=== PATIENT | male | born 1930 | race Caucasian/White ===

== ENCOUNTER 2019-08-09 23:17 | Inpatient (IN) | payer MEDICARE, OTHER ==
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
[2019-08-10 00:31] LABS: ABS Lymphocytes 0.3 10^3/ul (1.0-4.8); ABS Monocytes 0.4 10^3/ul (0-0.8); ABS Neutrophils 5.4 10^3/ul (1.5-7.7); Hematocrit 35 % (42-52); Hemoglobin 11.7 g/dL (14.0-18.0); Lymphocyte % 5.1 %; Mean Corpuscular HGB Conc 33 g/dL (31-36); Mean Corpuscular Hemoglobin 32 pg (27-31); Mean Corpuscular Volume 96 fL (80-94); Mean Platelet Volume 9.2 fL (7.4-10.4); Platelet Count 113 10^3/uL (150-450); Red Blood Count 3.64 10^6 /uL (4.18-5.48); Red Cell Distribution Width 16 % (10-15); White Blood Count 6.1 10^3/uL (3.5-10.8)
[2019-08-10 00:51] LABS: Albumin 3.7 g/dL (3.2-5.2); BUN/Creatinine Ratio 16.2 (8-20); C Reactive Protein 111.75 mg/L (<8.01); EGFR African American 26.3 (>60); EGFR Non-African American 21.8 (>60); Globulin 3.7 g/dL (2-4); Influenza A Molecular Negative (Negative); Influenza B Molecular Negative (Negative); Potassium 4.5 mmol/L (3.5-5.0); Total Protein 7.4 g/dL (6.4-8.9)
[2019-08-10] MEDS ORDERED: cefTRIAXone(*) 1 GM in NS 0.9% 50 ML* 50 ML IVPB ONE (01:03)
[2019-08-10] MEDS ORDERED: Azithromycin 500 mg/250 ml NS 500 MG/250 ML BAG IVPB ONE (01:03)
[2019-08-10] MEDS ORDERED: Acetaminophen TAB* 325 MG PO ONE (01:03)
[2019-08-10] MEDS ORDERED: NS 0.9% 1000 ML** 1,000 ML IV ONE ×2 (02:25→03:34)
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
[2019-08-10 07:07] LABS: ALT 103 U/L (7-52); AST 219 U/L (13-39); Alkaline Phosphatase 142 U/L (34-104); Anion Gap 8 mmol/L (2-11); BUN/Creatinine Ratio 17.4 (8-20); Blood Urea Nitrogen 44 mg/dL (6-24); CO2 Carbon Dioxide 20 mmol/L (22-32); Calcium 8.1 mg/dL (8.6-10.3); Chloride 102 mmol/L (101-111); EGFR African American 29.2 (>60); EGFR Non-African American 24.2 (>60); Globulin 3.1 g/dL (2-4); Glucose 116 mg/dL (70-100); Potassium 3.9 mmol/L (3.5-5.0); Sodium 130 mmol/L (135-145); Total Protein 6.1 g/dL (6.4-8.9)
[2019-08-10 08:46] LABS: ABS Lymphocytes 0.5 10^3/ul (1.0-4.8); ABS Monocytes 0.4 10^3/ul (0-0.8); ABS Neutrophils 3.8 10^3/ul (1.5-7.7); Hematocrit 29 % (42-52); Hemoglobin 9.8 g/dL (14.0-18.0); Lymphocyte % 10.9 %; Mean Corpuscular HGB Conc 34 g/dL (31-36); Mean Corpuscular Hemoglobin 32 pg (27-31); Mean Corpuscular Volume 95 fL (80-94); Platelet Count Platelets clumped. 10^3/uL (150-450); Red Blood Count 3.06 10^6 /uL (4.18-5.48); Red Cell Distribution Width 16 % (10-15); White Blood Count 4.7 10^3/uL (3.5-10.8)
--- NOTE | 2019-08-10 10:19 | ECHO ---
*[facility]* [place] [address] Fax #: [phone] Transthoracic Echocardiogram Patient: Cong Schmidt : 1930 Study Date: 08/10/2019 Age: 89 Gender: M HR: 68 bpm Height: 66 in /167.6 cm BSA: 2.08 m^2 Weight: 197.6 lb /89.8 kg BMI: 32 kg/m^2 *Gun Fertilizer: [facility] *Referring Physician: * Diya Loo *Reading Physician: * Mario Pack MD Indications: Congestive Heart Failure. History: Labs, prior tests, procedures, and surgery: Transvascular aortic valve replacement. ICD system implantation. Conclusions Summary: - Left ventricle: The cavity size is mildly reduced. Wall thickness is mildly increased. Systolic function is severely reduced. The estimated ejection fraction is 10-15%. - Right ventricle: The cavity size is mildly dilated. Systolic function is moderately reduced. - Left atrium: The atrium is severely dilated. - Mitral valve: The Mitral valve annulus appears calcified. The leaflets and chordae are mildly thickened, especially the anterior leaflet. 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 There is moderate regurgitation, with multiple jets. The valve area is 1.3 cm^2. The valve area by pressure half-time is 2.6 cm^2. - Aortic valve: Prior repair procedures include transcatheter aortic valve replacement. Appears to be functioning normally by doppler and suboptimal 2d. The mean systolic gradient is 6.0 mm Hg. The LVOT to aortic valve VTI ratio is 0.6. The valve area by the velocity-time integral method is 1.80 cm^2. The valve area by the peak velocity method is 1.80 cm^2. - Tricuspid valve: There is moderate regurgitation. - Pulmonary arteries: Systolic pressure is moderately increased. Study data: Transthoracic echocardiogram. Procedure: Transthoracic echocardiography was performed. Image quality was adequate. Complete 2D, spectral Doppler, and color flow Doppler. Location: Bedside. Patient status: Inpatient. Patient room number: 401. No prior study is available for comparison. Rhythm: Paced rhythm. Findings Left ventricle: The cavity size is mildly reduced. Wall thickness is mildly increased. Systolic function is severely reduced. The estimated ejection fraction is 10-15%. Severe diffuse hypokinesis with regional variations. Regional wall motion abnormalities: Dyskinesis of the mid inferoseptal and apical myocardium. Left ventricular diastolic function parameters are indeterminate. Right ventricle: The cavity size is mildly dilated. Pacer wire noted in the right ventricle. Systolic function is moderately reduced. Left atrium: The atrium is severely dilated. Right atrium: The atrium is moderately dilated. Pacer wire noted in right atrium. Atrial septum: Color Doppler shows an atrial level shunt. Mitral valve: The Mitral valve annulus appears calcified. The leaflets and chordae are mildly thickened, especially the anterior leaflet. Calcification. Mobility is restricted. 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 There is moderate regurgitation, with multiple jets. Aortic valve: Not well visualized. Prior repair procedures include transcatheter aortic valve replacement. Appears to be functioning normally by doppler and suboptimal 2d. There is no evidence of stenosis. There is no significant regurgitation. Tricuspid valve: The leaflets are mildly thickened. There is no evidence of stenosis. There is moderate regurgitation. Pulmonic valve: The leaflets are normal thickness. There is no evidence of stenosis. There is trace regurgitation. Aorta: Aortic root: The aortic root is not dilated. Ascending aorta: The ascending aorta is poorly visualized. Aortic arch: The aortic arch is poorly visualized. Pericardium: There is no significant pericardial effusion. Pulmonary arteries: Systolic pressure is moderately increased. Systemic veins: Inferior vena cava: The vessel is dilated. There is (< 50%) respiratory change in the IVC dimension. Measurements Left ventricle Value Ref Aortic valve continued Value Ref KATHE, LAX (L) 3.9 cm 4.2 - 5.8 VTI, S 31.0 cm ----- ESD, LAX 3.9 cm 2.5 - 4.0 Mean grad, S 6.0 mm Hg ----- FS, LAX (L) 0 % 25 - 43 Peak grad, S 12.0 mm Hg ----- PW, ED, LAX (H) 1.3 cm 0.6 - 1.0 LVOT/AV, VTI ratio 0.6 ----- E', lat parris, TDI (L) 5.7 cm/sec >=10.0 MARSHA, VTI 1.80 cm^2 - ---- E/e', lat parris, 25 MARSHA, Vmax 1.80 cm^2 ---- - TDI Mitral valve Value Ref LVOT Value Ref Peak E 1.45 m/sec ----- Diam, S 1.90 cm Peak A 0.58 m/sec ----- Area 2.8 cm^2 VTI leaflet coapt 40.9 cm ----- Peak berta, S 1.1 m/sec Decel time 207 ms ----- VTI, S 20.0 cm PHT 83 ms ----- Peak grad, S 5 mm Hg Mean grad, D 2.4 mm Hg ----- Mean grad, S 3 mm Hg Peak grad, D 9.7 mm Hg ----- Peak E/A ratio 2.5 ----- Ventricular septum Value Ref MVA, PHT 2.6 cm^2 ----- IVS, ED (H) 1.2 cm 0.6 - 1.0 MR peak v 4.21 m/sec ----- ERO, PISA 0.11 cm^2 ----- Right ventricle Value Ref MR vol, PISA 16 ml ----- KATHE, LAX 3.2 cm KATHE major ax, A4C (L) 4.5 cm 5.9 - 8.3 Pulmonic valve Value Ref Pressure, S 50 mm Hg Peak v, S 0.7 m/sec ----- Peak grad, S 2.0 mm Hg ----- Left atrium Value Ref AP dim, ES (H) 4.54 cm 3.00 - Tricuspid valve Value Ref 4.00 Peak grad, D 35.0 mm Hg ----- ML dim, A4C 5.1 cm TR peak v (H) 2.9 m/sec <=2.8 SI dim, A4C 7.0 cm Vol/bsa, ES, 2-p (H) 56 ml/m^2 16 - 34 Aortic root Value Ref Root diam 2.3 cm <4.2 Right atrium Value Ref SI dim, ES (H) 5.5 cm 3.4 - 5.3 Pulmonary artery Value Ref ML dim, ES, A4C (H) 5.2 cm 2.6 - 4.4 Pressure, S 48.0 mm Hg ----- Estimated RAP 15 mm Hg Inferior vena cava Value Ref Aortic valve Value Ref Diam 2.5 cm ----- Parris diam, ED 2.2 cm Parris diam/bsa, ED 1.1 cm/m^2 Peak v, S 1.7 m/sec Legend: (L) and (H) antonio values outside specified reference range. Prepared and electronically signed by Mario Pack MD 08/10/2019 10:18
[2019-08-10] MEDS ORDERED: Metolazone TAB* 5 MG PO PRN (11:23)
[2019-08-10 11:35] LABS: Total Iron Binding Capacity 190 mcg/dL (250-450); Transferrin 136 mg/dL (203-362)
[2019-08-10 11:41] LABS: % Iron Saturation 11 % (15-55); Iron < 20 ug/dL (50-212)
[2019-08-10 12:00] LABS: Folate 8.98 ng/mL (>3.99)
[2019-08-10] MEDS: DOXYcycline IV* 100 MG in NS 0.9% 250 ML* 250 ML IVPB SCH ×2 (13:01→23:27)
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
[2019-08-10] MEDS: Bumetanide TAB* 1 MG PO SCH ×2 (14:40→21:13)
[2019-08-10 17:56] LABS: Troponin I 0.11 ng/mL (<0.03)
[2019-08-10] MEDS ORDERED: Azithromycin 500 mg/250 ml NS 500 MG/250 ML BAG IVPB SCH (20:00)
[2019-08-10 20:06] LABS: Troponin I 0.09 ng/mL (<0.03)
[2019-08-10] MEDS: cefTRIAXone(*) 1 GM in NS 0.9% 50 ML* 50 ML IVPB SCH (20:48)
[2019-08-10] MEDS ORDERED: Apixaban* 2.5 MG TAB PO SCH (21:00)
[2019-08-10] MEDS ORDERED: BUMETANIDE 1 MG PO SCH (21:00)
[2019-08-10] MEDS: Pantoprazole TAB * 40 MG TAB PO SCH (21:13)
[2019-08-10] MEDS: amLODIPine TAB* 5 MG PO SCH (21:13)
[2019-08-10] MEDS: Iron Sucrose* 200 MG in NS 0.9% 100 ML* 100 ML IVPB SCH (22:38)
[2019-08-10] MEDS: guaiFENesin 100 mg/5 ml LIQ unit dose cup PO PRN (22:55)
[2019-08-11 05:09] LABS: Urine Appearance Cloudy; Urine Bilirubin Negative (Negative); Urine Blood 1+ (Negative); Urine Color Amber; Urine Glucose Negative (Negative); Urine Ketones Negative (Negative); Urine Nitrite Negative (Negative); Urine Protein 1+(30 mg/dL) (Negative); Urine Specific Gravity 1.015 (1.010-1.030); Urine Urobilinogen Negative (Negative)
[2019-08-11 05:11] LABS: Urine Bacteria Absent (Absent); Urine Red Blood Cell Trace(0-2/hpf) (Absent); Urine Squamous Epithelial Cell Present (Absent); Urine White Blood Cell Absent (Absent)
[2019-08-11 05:59] LABS: CO2 Carbon Dioxide 15 mmol/L (22-32); Calcium 8.1 mg/dL (8.6-10.3); Chloride 99 mmol/L (101-111); Sodium 126 mmol/L (135-145)
[2019-08-11 06:03] LABS: Anion Gap 12 mmol/L (2-11)
[2019-08-11 06:05] LABS: BUN/Creatinine Ratio 19.5 (8-20); Blood Urea Nitrogen 53 mg/dL (6-24); EGFR African American 26.9 (>60); EGFR Non-African American 22.2 (>60); Glucose 100 mg/dL (70-100)
[2019-08-11 06:13] LABS: ABS Lymphocytes 0.6 10^3/ul (1.0-4.8); ABS Monocytes 0.6 10^3/ul (0-0.8); ABS Neutrophils 6.8 10^3/ul (1.5-7.7); Hematocrit 35 % (42-52); Hemoglobin 11.6 g/dL (14.0-18.0); Large Platelets Present; Lymphocyte % 7.2 %; Mean Corpuscular HGB Conc 33 g/dL (31-36); Mean Corpuscular Hemoglobin 32 pg (27-31); Mean Corpuscular Volume 97 fL (80-94); Mean Platelet Volume 10.3 fL (7.4-10.4); Nucleated Red Blood Cells % 0.3; Platelet Count 88 10^3/uL (150-450); Red Blood Count 3.62 10^6 /uL (4.18-5.48); Red Cell Distribution Width 17 % (10-15); White Blood Count 8.1 10^3/uL (3.5-10.8)
[2019-08-11] MEDS: Levothyroxine TAB* 175 MCG TAB PO SCH (06:26)
[2019-08-11] MEDS: guaiFENesin 100 mg/5 ml LIQ unit dose cup PO PRN ×2 (06:26→19:39)
[2019-08-11] MEDS: Pantoprazole TAB * 40 MG TAB PO SCH ×2 (09:35→19:39)
[2019-08-11] MEDS: Finasteride TAB* 5 MG PO SCH (09:36)
[2019-08-11] MEDS: Tamsulosin CAP* 0.4 MG PO SCH (09:36)
[2019-08-11] MEDS: Ferrous Sulfate TAB* 325 MG PO SCH (09:37)
[2019-08-11] MEDS: Iron Sucrose* 200 MG in NS 0.9% 100 ML* 100 ML IVPB SCH (09:37)
[2019-08-11] MEDS: Atorvastatin* 10 MG TAB PO SCH (09:37)
[2019-08-11] MEDS: Amiodarone TAB* 200 MG PO SCH (09:37)
[2019-08-11] MEDS: amLODIPine TAB* 5 MG PO SCH (09:40)
[2019-08-11] MEDS: DOXYcycline IV* 100 MG in NS 0.9% 250 ML* 250 ML IVPB SCH ×2 (12:37→23:49)
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
[2019-08-11] MEDS ORDERED: Furosemide IV* 10 MG/ML 2 ML VIAL (20 MG) IV ONE (13:37)
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
[2019-08-11] MEDS ORDERED: NS 0.9% 500 ML* 500 ML IV ONE (19:16)
[2019-08-11] MEDS: cefTRIAXone(*) 1 GM in NS 0.9% 50 ML* 50 ML IVPB SCH (19:39)
[2019-08-12] MEDS: Levothyroxine TAB* 175 MCG TAB PO SCH (06:00)
[2019-08-12 06:44] LABS: ABS Lymphocytes 0.5 10^3/ul (1.0-4.8); ABS Monocytes 0.4 10^3/ul (0-0.8); ABS Neutrophils 6.5 10^3/ul (1.5-7.7); Calcium 7.8 mg/dL (8.6-10.3); Chloride 99 mmol/L (101-111); Hematocrit 31 % (42-52); Hemoglobin 10.2 g/dL (14.0-18.0); Lymphocyte % 6.8 %; Mean Corpuscular HGB Conc 33 g/dL (31-36); Mean Corpuscular Hemoglobin 32 pg (27-31); Mean Corpuscular Volume 97 fL (80-94); Mean Platelet Volume 10.7 fL (7.4-10.4); Nucleated Red Blood Cells % 0.6; Platelet Count 81 10^3/uL (150-450); Red Cell Distribution Width 17 % (10-15); Sodium 125 mmol/L (135-145); White Blood Count 7.4 10^3/uL (3.5-10.8)
[2019-08-12 06:47] LABS: Anion Gap 12 mmol/L (2-11); CO2 Carbon Dioxide 14 mmol/L (22-32)
[2019-08-12 06:50] LABS: BUN/Creatinine Ratio 20.3 (8-20); Blood Urea Nitrogen 57 mg/dL (6-24); EGFR African American 25.9 (>60); EGFR Non-African American 21.4 (>60); Glucose 88 mg/dL (70-100)
[2019-08-12] MEDS: Tamsulosin CAP* 0.4 MG PO SCH (11:27)
[2019-08-12] MEDS: Finasteride TAB* 5 MG PO SCH (11:27)
[2019-08-12] MEDS: Amiodarone TAB* 200 MG PO SCH (11:28)
[2019-08-12] MEDS: Ferrous Sulfate TAB* 325 MG PO SCH (11:28)
[2019-08-12] MEDS: Pantoprazole TAB * 40 MG TAB PO SCH ×2 (11:28→20:56)
[2019-08-12] MEDS: Atorvastatin* 10 MG TAB PO SCH (11:28)
[2019-08-12] MEDS: Iron Sucrose* 200 MG in NS 0.9% 100 ML* 100 ML IVPB SCH (11:30)
[2019-08-12] MEDS: DOXYcycline IV* 100 MG in NS 0.9% 250 ML* 250 ML IVPB SCH (12:04)
[2019-08-12] MEDS ORDERED: Furosemide IV* 10 MG/ML 2 ML VIAL (20 MG) IV ONE (12:35)
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
[2019-08-12] MEDS: Bumetanide TAB* 2 MG PO SCH (20:55)
[2019-08-12] MEDS: cefTRIAXone(*) 1 GM in NS 0.9% 50 ML* 50 ML IVPB SCH (20:56)
[2019-08-13] MEDS: DOXYcycline IV* 100 MG in NS 0.9% 250 ML* 250 ML IVPB SCH (00:02)
[2019-08-13] MEDS: Levothyroxine TAB* 175 MCG TAB PO SCH (05:29)
[2019-08-13 08:43] LABS: ABS Lymphocytes 0.3 10^3/ul (1.0-4.8); ABS Monocytes 0.3 10^3/ul (0-0.8); Eosinophil % 0.1 %; Hematocrit 28 % (42-52); Hemoglobin 9.7 g/dL (14.0-18.0); Lymphocyte % 4.4 %; Mean Corpuscular HGB Conc 34 g/dL (31-36); Mean Corpuscular Hemoglobin 32 pg (27-31); Mean Corpuscular Volume 94 fL (80-94); Nucleated Red Blood Cells % 0.6; Platelet Count 85 10^3/uL (150-450); Red Blood Count 3.02 10^6 /uL (4.18-5.48); Red Cell Distribution Width 16 % (10-15); White Blood Count 6.7 10^3/uL (3.5-10.8)
[2019-08-13 08:59] LABS: Albumin 2.6 g/dL (3.2-5.2); Albumin/Globulin Ratio 0.9 (1-3); BUN/Creatinine Ratio 21.4 (8-20); Calcium 7.8 mg/dL (8.6-10.3); EGFR African American 29.4 (>60); EGFR Non-African American 24.3 (>60); Globulin 2.9 g/dL (2-4); Magnesium 1.8 mg/dL (1.9-2.7); Potassium 3.9 mmol/L (3.5-5.0); Total Protein 5.5 g/dL (6.4-8.9)
[2019-08-13] MEDS: Bumetanide TAB* 2 MG PO SCH (09:31)
[2019-08-13] MEDS: Amiodarone TAB* 200 MG PO SCH (09:32)
[2019-08-13] MEDS: Finasteride TAB* 5 MG PO SCH (09:32)
[2019-08-13] MEDS: Atorvastatin* 10 MG TAB PO SCH (09:33)
[2019-08-13] MEDS: Tamsulosin CAP* 0.4 MG PO SCH (09:33)
[2019-08-13] MEDS: Iron Sucrose* 200 MG in NS 0.9% 100 ML* 100 ML IVPB SCH (09:33)
[2019-08-13] MEDS: Pantoprazole TAB * 40 MG TAB PO SCH (09:34)
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
[2019-08-13] MEDS ORDERED: Torsemide TAB 10 MG PO SCH (12:00)
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
--- NOTE | 2019-08-13 15:03 | CONSULT ---
Consult Consult: Consult Reason: For Medical Decision Making Capacity Psychiatry is asked to evaluate this 89 year old male with pneumonia, CHF, CKD , BPH, Anemia, who is COVID-19 + for medical decision making capacity. His daughter who is his health care proxy wishes that he be DNR/DNI. No MOLST form has not been completed and the patient wishes to have full code status and be intubated. The patient was hard of hearing during the encounter. Given the information provided the patient has the right to choose full code status and life staining treatment. No MOLST form is available and the patient knows his health condition and is able to make a choice for himself and understand the risks of that decision. MSE is not available Due to COVID status, the patient encounter took place by phone. Information was communicated to the consulting provider who is in agreement with the plan. Please consult again if you have any further questions Thank you for the consult. Amado Matthews MD
[2019-08-14] MEDS: Levothyroxine TAB* 175 MCG TAB PO SCH (05:31)
[2019-08-14 07:26] LABS: ABS Lymphocytes 0.3 10^3/ul (1.0-4.8); ABS Monocytes 0.3 10^3/ul (0-0.8); ABS Neutrophils 4.6 10^3/ul (1.5-7.7); Eosinophil % 0.6 %; Hematocrit 29 % (42-52); Hemoglobin 9.8 g/dL (14.0-18.0); Lymphocyte % 5.8 %; Mean Corpuscular HGB Conc 34 g/dL (31-36); Mean Corpuscular Hemoglobin 32 pg (27-31); Mean Corpuscular Volume 95 fL (80-94); Mean Platelet Volume 9.5 fL (7.4-10.4); Nucleated Red Blood Cells % 0.4; Platelet Count 95 10^3/uL (150-450); Red Blood Count 3.09 10^6 /uL (4.18-5.48); Red Cell Distribution Width 17 % (10-15); White Blood Count 5.3 10^3/uL (3.5-10.8)
[2019-08-14 07:30] LABS: BUN/Creatinine Ratio 22.2 (8-20); Calcium 7.9 mg/dL (8.6-10.3); EGFR African American 34.2 (>60); EGFR Non-African American 28.2 (>60); Magnesium 1.8 mg/dL (1.9-2.7); Potassium 3.6 mmol/L (3.5-5.0)
[2019-08-14] MEDS: Iron Sucrose* 200 MG in NS 0.9% 100 ML* 100 ML IVPB SCH (08:12)
[2019-08-14] MEDS: Tamsulosin CAP* 0.4 MG PO SCH (08:12)
[2019-08-14] MEDS: Atorvastatin* 10 MG TAB PO SCH (08:12)
[2019-08-14] MEDS: Amiodarone TAB* 200 MG PO SCH (08:12)
[2019-08-14] MEDS: Finasteride TAB* 5 MG PO SCH (08:13)
[2019-08-14] MEDS: Pantoprazole TAB * 40 MG TAB PO SCH (08:13)
[2019-08-14] MEDS ORDERED: Torsemide TAB 10 MG PO SCH (09:00)
[2019-08-14] MEDS: guaiFENesin 100 mg/5 ml LIQ unit dose cup PO PRN (13:00)
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
[2019-08-14] MEDS: Polyethylene Glycol 3350* 17 GM PACKET PO PRN (17:47)
[2019-08-14] MEDS: Apixaban* 2.5 MG TAB PO SCH (20:05)
[2019-08-14] MEDS ORDERED: Magnesium Sulfate 1 GM IV* 1 GM/100 ML BAG IV ONE (21:00)
[2019-08-15] MEDS: Levothyroxine TAB* 175 MCG TAB PO SCH (05:09)
[2019-08-15 06:57] LABS: Hematocrit 30 % (42-52); Mean Corpuscular HGB Conc 34 g/dL (31-36); Mean Corpuscular Hemoglobin 32 pg (27-31); Mean Corpuscular Volume 94 fL (80-94); Mean Platelet Volume 9.2 fL (7.4-10.4); Platelet Count 98 10^3/uL (150-450); Red Blood Count 3.13 10^6 /uL (4.18-5.48); Red Cell Distribution Width 16 % (10-15); White Blood Count 4.6 10^3/uL (3.5-10.8)
[2019-08-15 07:09] LABS: ALT 306 U/L (7-52); AST 167 U/L (13-39); Albumin 2.7 g/dL (3.2-5.2); Albumin/Globulin Ratio 0.9 (1-3); Alkaline Phosphatase 200 U/L (34-104); Anion Gap 8 mmol/L (2-11); BUN/Creatinine Ratio 22.6 (8-20); Blood Urea Nitrogen 47 mg/dL (6-24); C Reactive Protein 100.22 mg/L (<8.01); CO2 Carbon Dioxide 20 mmol/L (22-32); Calcium 7.9 mg/dL (8.6-10.3); Chloride 101 mmol/L (101-111); EGFR African American 36.6 (>60); EGFR Non-African American 30.3 (>60); Globulin 2.9 g/dL (2-4); Glucose 104 mg/dL (70-100); Potassium 3.6 mmol/L (3.5-5.0); Sodium 129 mmol/L (135-145); Total Protein 5.6 g/dL (6.4-8.9)
[2019-08-15 07:52] LABS: Ferritin > 1500.0 ng/mL (24-336)
[2019-08-15] MEDS ORDERED: NS 0.9% 100 ML* 0 ML ONE (08:31)
[2019-08-15 08:55] LABS: ABS Lymphocytes 0.4 10^3/ul (1.0-4.8); ABS Monocytes 0.4 10^3/ul (0-0.8); ABS Neutrophils 3.7 10^3/ul (1.5-7.7); Lymphocyte % 9.2 %; Nucleated Red Blood Cells % 0.5
[2019-08-15] MEDS: Finasteride TAB* 5 MG PO SCH (08:59)
[2019-08-15] MEDS: Atorvastatin* 10 MG TAB PO SCH (08:59)
[2019-08-15] MEDS: Apixaban* 2.5 MG TAB PO SCH ×2 (08:59→20:42)
[2019-08-15] MEDS: Amiodarone TAB* 200 MG PO SCH (09:00)
[2019-08-15] MEDS: Tamsulosin CAP* 0.4 MG PO SCH (09:00)
[2019-08-15] MEDS: Pantoprazole TAB * 40 MG TAB PO SCH (09:00)
[2019-08-15] MEDS: Iron Sucrose* 200 MG in NS 0.9% 100 ML* 100 ML IVPB SCH (09:00)
[2019-08-15] MEDS: Polyethylene Glycol 3350* 17 GM PACKET PO PRN (09:45)
[2019-08-15] MEDS: Senna TAB 8.6 mg* TAB PO PRN (09:46)
[2019-08-15] MEDS ORDERED: Acetaminophen TAB* 325 MG PO PRN (10:26)
[2019-08-15 11:05] LABS: LDH 248 U/L (140-271)
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
[2019-08-16 04:49] LABS: Albumin 2.6 g/dL (3.2-5.2); Albumin/Globulin Ratio 0.9 (1-3); BUN/Creatinine Ratio 23.2 (8-20); C Reactive Protein 71.59 mg/L (<8.01); EGFR Non-African American 35.6 (>60); Magnesium 1.9 mg/dL (1.9-2.7); Potassium 3.6 mmol/L (3.5-5.0); Total Bilirubin 1.2 mg/dL (0.2-1.0); Total Protein 5.6 g/dL (6.4-8.9)
[2019-08-16 05:08] LABS: Hematocrit 32 % (42-52); Hemoglobin 10.6 g/dL (14.0-18.0); Mean Corpuscular HGB Conc 33 g/dL (31-36); Mean Corpuscular Hemoglobin 32 pg (27-31); Mean Corpuscular Volume 97 fL (80-94); Mean Platelet Volume 9.2 fL (7.4-10.4); Platelet Count 98 10^3/uL (150-450); Red Blood Count 3.32 10^6 /uL (4.18-5.48); Red Cell Distribution Width 17 % (10-15); White Blood Count 5.1 10^3/uL (3.5-10.8)
[2019-08-16 05:19] LABS: ABS Eosinophils 0.1 10^3/ul (0-0.6); ABS Lymphocytes 0.5 10^3/ul (1.0-4.8); ABS Monocytes 0.3 10^3/ul (0-0.8); ABS Neutrophils 4.1 10^3/ul (1.5-7.7); Eosinophil % 1.3 %; Lymphocyte % 10.8 %; Nucleated Red Blood Cells % 0.2
[2019-08-16] MEDS: Levothyroxine TAB* 175 MCG TAB PO SCH (06:06)
[2019-08-16] MEDS: Amiodarone TAB* 200 MG PO SCH (07:38)
[2019-08-16] MEDS: Atorvastatin* 10 MG TAB PO SCH (07:38)
[2019-08-16] MEDS: Senna TAB 8.6 mg* TAB PO PRN (07:38)
[2019-08-16] MEDS: Pantoprazole TAB * 40 MG TAB PO SCH (07:38)
[2019-08-16] MEDS: Finasteride TAB* 5 MG PO SCH (07:38)
[2019-08-16] MEDS: Apixaban* 2.5 MG TAB PO SCH ×2 (07:38→19:48)
[2019-08-16] MEDS: Tamsulosin CAP* 0.4 MG PO SCH (07:38)
[2019-08-16] MEDS: Bumetanide TAB* 2 MG PO PRN (10:58)
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
[2019-08-17] MEDS: Levothyroxine TAB* 175 MCG TAB PO SCH (05:11)
[2019-08-17] MEDS: Senna TAB 8.6 mg* TAB PO PRN (08:37)
[2019-08-17] MEDS: Finasteride TAB* 5 MG PO SCH (08:38)
[2019-08-17] MEDS: Tamsulosin CAP* 0.4 MG PO SCH (08:38)
[2019-08-17] MEDS: Atorvastatin* 10 MG TAB PO SCH (08:38)
[2019-08-17] MEDS: Apixaban* 2.5 MG TAB PO SCH ×2 (08:38→20:21)
[2019-08-17] MEDS: Amiodarone TAB* 200 MG PO SCH (08:38)
[2019-08-17] MEDS: Polyethylene Glycol 3350* 17 GM PACKET PO PRN (08:38)
[2019-08-17] MEDS: Pantoprazole TAB * 40 MG TAB PO SCH (08:38)
[2019-08-17 10:04] LABS: ABS Lymphocytes 0.4 10^3/ul (1.0-4.8); ABS Monocytes 0.5 10^3/ul (0-0.8); ABS Neutrophils 7.2 10^3/ul (1.5-7.7); Eosinophil % 0.4 %; Hematocrit 33 % (42-52); Lymphocyte % 4.8 %; Mean Corpuscular HGB Conc 34 g/dL (31-36); Mean Corpuscular Hemoglobin 32 pg (27-31); Mean Corpuscular Volume 95 fL (80-94); Platelet Count 116 10^3/uL (150-450); Red Blood Count 3.45 10^6 /uL (4.18-5.48); Red Cell Distribution Width 17 % (10-15); White Blood Count 8.2 10^3/uL (3.5-10.8)
[2019-08-17 12:44] LABS: Albumin 2.8 g/dL (3.2-5.2); CO2 Carbon Dioxide 16 mmol/L (22-32); Calcium 7.9 mg/dL (8.6-10.3); Chloride 102 mmol/L (101-111); Sodium 129 mmol/L (135-145)
[2019-08-17 12:48] LABS: Anion Gap 11 mmol/L (2-11)
[2019-08-17 12:50] LABS: ALT 179 U/L (7-52); Albumin/Globulin Ratio 0.9 (1-3); Alkaline Phosphatase 210 U/L (34-104); Blood Urea Nitrogen 42 mg/dL (6-24); C Reactive Protein 64.49 mg/L (<8.01); EGFR African American 44.7 (>60); Glucose 110 mg/dL (70-100); Total Protein 5.8 g/dL (6.4-8.9)
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
[2019-08-18] MEDS: Levothyroxine TAB* 175 MCG TAB PO SCH (05:44)
[2019-08-18 06:08] LABS: Hematocrit 32 % (42-52); Hemoglobin 10.7 g/dL (14.0-18.0); Mean Corpuscular HGB Conc 34 g/dL (31-36); Mean Corpuscular Hemoglobin 32 pg (27-31); Mean Corpuscular Volume 95 fL (80-94); Platelet Count 109 10^3/uL (150-450); Red Blood Count 3.32 10^6 /uL (4.18-5.48); Red Cell Distribution Width 17 % (10-15); White Blood Count 8.8 10^3/uL (3.5-10.8)
[2019-08-18 06:15] LABS: INR 1.76 (0.82-1.09)
[2019-08-18 06:28] LABS: Albumin 2.8 g/dL (3.2-5.2); Albumin/Globulin Ratio 0.9 (1-3); BUN/Creatinine Ratio 24.7 (8-20); C Reactive Protein 67.36 mg/L (<8.01); Calcium 8.1 mg/dL (8.6-10.3); EGFR African American 50.3 (>60); EGFR Non-African American 41.6 (>60); Phosphorus 1.8 mg/dL (2.5-5.0); Potassium 3.9 mmol/L (3.5-5.0); Total Bilirubin 1.4 mg/dL (0.2-1.0); Total Protein 5.8 g/dL (6.4-8.9)
[2019-08-18 06:42] LABS: ABS Eosinophils 0.1 10^3/ul (0-0.6); ABS Lymphocytes 0.5 10^3/ul (1.0-4.8); ABS Monocytes 0.4 10^3/ul (0-0.8); ABS Neutrophils 7.7 10^3/ul (1.5-7.7); Eosinophil % 0.7 %; Lymphocyte % 6.1 %; Nucleated Red Blood Cells % 0.1
[2019-08-18] MEDS: Tamsulosin CAP* 0.4 MG PO SCH (08:28)
[2019-08-18] MEDS: Pantoprazole TAB * 40 MG TAB PO SCH (08:28)
[2019-08-18] MEDS: Apixaban* 2.5 MG TAB PO SCH ×2 (08:28→20:15)
[2019-08-18] MEDS: Amiodarone TAB* 200 MG PO SCH (08:28)
[2019-08-18] MEDS: Bumetanide TAB* 2 MG PO PRN (08:28)
[2019-08-18] MEDS: Atorvastatin* 10 MG TAB PO SCH (08:28)
[2019-08-18] MEDS: Finasteride TAB* 5 MG PO SCH (08:29)
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
[2019-08-18] MEDS ORDERED: Magnesium Sulfate 1 GM IV* 1 GM/100 ML BAG IV ONE (15:56)
[2019-08-19] MEDS: Levothyroxine TAB* 175 MCG TAB PO SCH (06:01)
[2019-08-19] MEDS: Amiodarone TAB* 200 MG PO SCH (08:42)
[2019-08-19] MEDS: Atorvastatin* 10 MG TAB PO SCH (08:42)
[2019-08-19] MEDS: Apixaban* 2.5 MG TAB PO SCH ×2 (08:42→21:41)
[2019-08-19] MEDS: Tamsulosin CAP* 0.4 MG PO SCH (08:42)
[2019-08-19] MEDS: Finasteride TAB* 5 MG PO SCH (08:43)
[2019-08-19] MEDS: Pantoprazole TAB * 40 MG TAB PO SCH (08:43)
[2019-08-19] MEDS: Polyethylene Glycol 3350* 17 GM PACKET PO PRN (11:38)
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
[2019-08-19 14:13] LABS: Hematocrit 36 % (42-52); Hemoglobin 11.7 g/dL (14.0-18.0); Mean Corpuscular HGB Conc 33 g/dL (31-36); Mean Corpuscular Hemoglobin 31 pg (27-31); Mean Corpuscular Volume 96 fL (80-94); Mean Platelet Volume 8.9 fL (7.4-10.4); Platelet Count 128 10^3/uL (150-450); Red Blood Count 3.74 10^6 /uL (4.18-5.48); Red Cell Distribution Width 17 % (10-15)
[2019-08-19 14:23] LABS: Albumin 3.3 g/dL (3.2-5.2); Albumin/Globulin Ratio 0.9 (1-3); BUN/Creatinine Ratio 22.3 (8-20); Calcium 8.6 mg/dL (8.6-10.3); EGFR African American 50.7 (>60); EGFR Non-African American 41.9 (>60); Globulin 3.6 g/dL (2-4); Potassium 3.9 mmol/L (3.5-5.0); Total Bilirubin 1.5 mg/dL (0.2-1.0); Total Protein 6.9 g/dL (6.4-8.9)
--- NOTE | 2019-08-19 17:46 | PN ---
Hospitalist Progress Note Date of Service: 08/19/19 increasing LE edema; BP 100/60, will give bumex 1 mg now, follow BP
[2019-08-19] MEDS: Bumetanide TAB* 2 MG PO PRN (18:10)
[2019-08-19] MEDS: Senna TAB 8.6 mg* TAB PO PRN (21:41)
[2019-08-20] MEDS: Levothyroxine TAB* 175 MCG TAB PO SCH (04:18)
[2019-08-20] MEDS: Pantoprazole TAB * 40 MG TAB PO SCH (08:23)
[2019-08-20] MEDS: Bumetanide TAB* 2 MG PO PRN (08:23)
[2019-08-20] MEDS: Tamsulosin CAP* 0.4 MG PO SCH (08:24)
[2019-08-20] MEDS: Atorvastatin* 10 MG TAB PO SCH (08:24)
[2019-08-20] MEDS: Finasteride TAB* 5 MG PO SCH (08:24)
[2019-08-20] MEDS: Amiodarone TAB* 200 MG PO SCH (08:24)
[2019-08-20] MEDS: Apixaban* 2.5 MG TAB PO SCH (08:24)
[2019-08-20 15:12] VITALS: BP 104/60
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
== END 2019-08-20 17:25 | disposition swing bed (61) | DRG 178 ==
LOC: ED 23:17 → MED 08-10 03:31
PROVIDERS: ADMIT Student in an Organized Health Care Education/Training Program; ATTEND Internal Medicine
DX: U07.1 COVID-19 (principal); I13.0 Hypertensive heart and chronic kidney disease with heart failure and stage 1 through stage 4 chronic kidney disease, or unspecified chronic kidney disease; E87.1 Hypo-osmolality and hyponatremia; I42.9 Cardiomyopathy, unspecified; I50.20 Unspecified systolic (congestive) heart failure; N18.9 Chronic kidney disease, unspecified; I25.10 Atherosclerotic heart disease of native coronary artery without angina pectoris; D50.9 Iron deficiency anemia, unspecified; Z66 Do not resuscitate; I48.91 Unspecified atrial fibrillation; R74.0 Nonspecific elevation of levels of transaminase and lactic acid dehydrogenase [LDH]; D69.6 Thrombocytopenia, unspecified; R09.02 Hypoxemia; N40.0 Benign prostatic hyperplasia without lower urinary tract symptoms; I34.0 Nonrheumatic mitral (valve) insufficiency; Z95.2 Presence of prosthetic heart valve; Z82.49 Family history of ischemic heart disease and other diseases of the circulatory system; Z87.891 Personal history of nicotine dependence; V49.3XXA Car occupant (driver) (passenger) injured in unspecified nontraffic accident, initial encounter; Y92.410 Unspecified street and highway as the place of occurrence of the external cause
CPT/HCPCS: 36415; 70450; 71045; 80048; 80053; 81003; 81015; 82272; 82607; 82728; 82746; 83540; 83550; 83605; 83615; 83735; 83880; 84100; 84484; 85025; 85027; 85060; 85610; 86140; 87040; 87635; 93005; 93306; 96365; 96375; 99285; A9270-GY; G2023; J0456; J0696; J1756; J1940; J3475; Q9967

== ENCOUNTER 2019-08-20 16:54 | Inpatient (IN) | payer MEDICARE, OTHER ==
[2019-08-20] MEDS: Senna TAB 8.6 mg TAB PO PRN (20:12)
[2019-08-21] MEDS: Polyethylene Glycol 3350 17 GM PACKET PO PRN (08:40)
[2019-08-22] MEDS: Senna TAB 8.6 mg TAB PO PRN (04:18)
[2019-08-23] MEDS: Senna TAB 8.6 mg TAB PO PRN (09:50)
[2019-08-23 14:59] LABS: Urine Appearance Turbid; Urine Bilirubin Negative (Negative); Urine Blood 3+ (Negative); Urine Color Amber; Urine Glucose Negative (Negative); Urine Ketones Negative (Negative); Urine Nitrite Negative (Negative); Urine Protein 1+(30 mg/dL) (Negative); Urine Urobilinogen Negative (Negative)
[2019-08-23 15:08] LABS: Urine Bacteria 3+ (Absent); Urine Red Blood Cell 3+(>10/hpf) (Absent); Urine White Blood Cell 3+(>20/hpf) (Absent)
[2019-08-24] MEDS: Magic MouthWash1-BEN/MAAL/LIDO 180 ML BTL SWISH SWAL SCH ×5 (01:25→20:51)
[2019-08-25] MEDS: Magic MouthWash1-BEN/MAAL/LIDO 180 ML BTL SWISH SWAL SCH ×4 (09:25→22:07)
[2019-08-26] MEDS: Magic MouthWash1-BEN/MAAL/LIDO 180 ML BTL SWISH SWAL SCH ×4 (08:47→21:28)
[2019-08-26] MEDS: cefTRIAXone ADVAN VIAL 1 GM in NS 0.9% 50 ML 50 ML IVPB SCH (16:02)
[2019-08-27 06:18] LABS: ABS Lymphocytes 0.8 10^3/ul (1.0-4.8); ABS Monocytes 0.5 10^3/ul (0-0.8); Eosinophil % 0.1 %; Hematocrit 30 % (42-52); Hemoglobin 10.2 g/dL (14.0-18.0); Lymphocyte % 8.3 %; Mean Corpuscular HGB Conc 34 g/dL (31-36); Mean Corpuscular Hemoglobin 32 pg (27-31); Mean Corpuscular Volume 96 fL (80-94); Mean Platelet Volume 8.6 fL (7.4-10.4); Platelet Count 105 10^3/uL (150-450); Red Blood Count 3.15 10^6 /uL (4.18-5.48); Red Cell Distribution Width 17 % (10-15); White Blood Count 9.5 10^3/uL (3.5-10.8)
[2019-08-27 06:29] LABS: BUN/Creatinine Ratio 23.3 (8-20); Calcium 8.6 mg/dL (8.6-10.3); EGFR African American 48.6 (>60); EGFR Non-African American 40.1 (>60); Potassium 4.5 mmol/L (3.5-5.0)
[2019-08-27] MEDS: Magic MouthWash1-BEN/MAAL/LIDO 180 ML BTL SWISH SWAL SCH ×4 (10:34→22:19)
[2019-08-27] MEDS: cefTRIAXone ADVAN VIAL 1 GM in NS 0.9% 50 ML 50 ML IVPB SCH (15:21)
[2019-08-27] MEDS: NITROFURANTOIN 100 MG PO SCH (22:12)
[2019-08-28] MEDS: NITROFURANTOIN 100 MG PO SCH (08:43)
[2019-08-28] MEDS: Magic MouthWash1-BEN/MAAL/LIDO 180 ML BTL SWISH SWAL SCH ×5 (08:45→21:17)
[2019-08-28] MEDS ORDERED: Piperacillin/Tazobac ADVAN(*) 3.375 GM in NS 0.9% 100 ml BAG 100 ML IVPB ONE (10:45)
[2019-08-28] MEDS ORDERED: Zosyn per Pharmacy NOTE FOLLOW UP SCH (11:00)
[2019-08-28] MEDS: Meropenem 2 GM in NS 0.9% 100 ml BAG 100 ML IVPB SCH (12:12)
[2019-08-28] MEDS: ZOSYN 3.375 GM Q8H per EXTENDED INFUSION IVPB SCH (17:34)
[2019-08-29] MEDS: Meropenem 2 GM in NS 0.9% 100 ml BAG 100 ML IVPB SCH ×2 (00:26→14:17)
[2019-08-29] MEDS: ZOSYN 3.375 GM Q8H per EXTENDED INFUSION IVPB SCH ×2 (01:00→11:50)
[2019-08-29] MEDS: Magic MouthWash1-BEN/MAAL/LIDO 180 ML BTL SWISH SWAL SCH ×4 (11:51→23:28)
[2019-08-29] MEDS: AVIBACTAM IV SCH ×2 (15:24→23:28)
[2019-08-29] MEDS: CEFTAZIDIME IV SCH ×2 (15:24→23:28)
[2019-08-30 06:21] LABS: ABS Basophils 0.1 10^3/ul (0-0.2); ABS Eosinophils 0.1 10^3/ul (0-0.6); ABS Lymphocytes 0.7 10^3/ul (1.0-4.8); ABS Monocytes 0.4 10^3/ul (0-0.8); Eosinophil % 0.8 %; Hematocrit 32 % (42-52); Hemoglobin 10.4 g/dL (14.0-18.0); Mean Corpuscular HGB Conc 33 g/dL (31-36); Mean Corpuscular Hemoglobin 32 pg (27-31); Mean Corpuscular Volume 97 fL (80-94); Mean Platelet Volume 8.5 fL (7.4-10.4); Platelet Count 121 10^3/uL (150-450); Red Cell Distribution Width 18 % (10-15); White Blood Count 7.4 10^3/uL (3.5-10.8)
[2019-08-30 06:42] LABS: BUN/Creatinine Ratio 16.8 (8-20); Calcium 8.3 mg/dL (8.6-10.3); EGFR Non-African American 34.7 (>60); Potassium 3.7 mmol/L (3.5-5.0)
[2019-08-30] MEDS: Magic MouthWash1-BEN/MAAL/LIDO 180 ML BTL SWISH SWAL SCH ×4 (07:35→21:12)
[2019-08-30] MEDS: CEFTAZIDIME IV SCH ×3 (07:35→22:53)
[2019-08-30] MEDS: AVIBACTAM IV SCH ×3 (07:35→22:53)
[2019-08-31] MEDS: CEFTAZIDIME IV SCH ×3 (07:34→23:54)
[2019-08-31] MEDS: AVIBACTAM IV SCH ×3 (07:34→23:54)
[2019-08-31] MEDS: Magic MouthWash1-BEN/MAAL/LIDO 180 ML BTL SWISH SWAL SCH ×4 (07:35→21:05)
[2019-08-31] MEDS: Senna TAB 8.6 mg TAB PO PRN (21:03)
[2019-09-01] MEDS: AVIBACTAM IV SCH ×3 (07:22→22:59)
[2019-09-01] MEDS: Magic MouthWash1-BEN/MAAL/LIDO 180 ML BTL SWISH SWAL SCH ×4 (07:22→20:39)
[2019-09-01] MEDS: CEFTAZIDIME IV SCH ×3 (07:22→22:59)
[2019-09-01] MEDS: Polyethylene Glycol 3350 17 GM PACKET PO PRN (11:03)
[2019-09-02] MEDS: AVIBACTAM IV SCH ×2 (07:43→15:59)
[2019-09-02] MEDS: CEFTAZIDIME IV SCH ×2 (07:43→15:59)
[2019-09-02] MEDS: Magic MouthWash1-BEN/MAAL/LIDO 180 ML BTL SWISH SWAL SCH ×4 (08:55→21:00)
[2019-09-03] MEDS: AVIBACTAM IV SCH ×3 (00:44→20:50)
[2019-09-03] MEDS: CEFTAZIDIME IV SCH ×3 (00:44→20:50)
[2019-09-03 06:45] LABS: ABS Lymphocytes 0.8 10^3/ul (1.0-4.8); ABS Monocytes 0.6 10^3/ul (0-0.8); Eosinophil % 0.3 %; Hematocrit 31 % (42-52); Hemoglobin 10.4 g/dL (14.0-18.0); Lymphocyte % 8.7 %; Mean Corpuscular HGB Conc 34 g/dL (31-36); Mean Corpuscular Hemoglobin 32 pg (27-31); Mean Corpuscular Volume 96 fL (80-94); Mean Platelet Volume 8.2 fL (7.4-10.4); Platelet Count 140 10^3/uL (150-450); Red Blood Count 3.21 10^6 /uL (4.18-5.48); Red Cell Distribution Width 18 % (10-15); White Blood Count 9.4 10^3/uL (3.5-10.8)
[2019-09-03 07:05] LABS: BUN/Creatinine Ratio 15.3 (8-20); Calcium 8.5 mg/dL (8.6-10.3); EGFR African American 40.9 (>60); EGFR Non-African American 33.8 (>60); Potassium 3.2 mmol/L (3.5-5.0)
[2019-09-03] MEDS: Magic MouthWash1-BEN/MAAL/LIDO 180 ML BTL SWISH SWAL SCH ×4 (08:30→20:54)
[2019-09-03] MEDS ORDERED: Potassium Chlor 20 meq TAB.ER PO ONE (09:12)
[2019-09-03 09:31] LABS: Magnesium 2.3 mg/dL (1.9-2.7)
[2019-09-03] MEDS ORDERED: Phenol 1.4% Throat Spray 177 ml BTL MT PRN (11:06)
[2019-09-04 08:30] LABS: BUN/Creatinine Ratio 15.7 (8-20); Calcium 8.6 mg/dL (8.6-10.3); EGFR African American 37.5 (>60); Potassium 3.8 mmol/L (3.5-5.0)
[2019-09-04] MEDS: AVIBACTAM IV SCH ×2 (09:12→19:34)
[2019-09-04] MEDS: Magic MouthWash1-BEN/MAAL/LIDO 180 ML BTL SWISH SWAL SCH ×4 (09:12→21:53)
[2019-09-04] MEDS: CEFTAZIDIME IV SCH ×2 (09:12→19:34)
[2019-09-04 11:03] LABS: T4, Total 8.24 mcg/dL (6.09-12.23)
[2019-09-04 11:05] LABS: Free T3 2.1 pg/mL (2.5-3.9); TSH (Thyroid Stimulating Horm) 4.02 mcIU/mL (0.34-5.60)
[2019-09-04 11:06] LABS: Free T4 1.7 ng/dL (0.61-1.12)
[2019-09-05] MEDS: AVIBACTAM IV SCH (09:07)
[2019-09-05] MEDS: CEFTAZIDIME IV SCH (09:07)
[2019-09-05] MEDS: Magic MouthWash1-BEN/MAAL/LIDO 180 ML BTL SWISH SWAL SCH ×4 (09:11→20:21)
[2019-09-06] MEDS: Magic MouthWash1-BEN/MAAL/LIDO 180 ML BTL SWISH SWAL SCH ×4 (10:09→19:52)
[2019-09-07] MEDS: Magic MouthWash1-BEN/MAAL/LIDO 180 ML BTL SWISH SWAL SCH ×4 (09:30→21:51)
[2019-09-08] MEDS: Magic MouthWash1-BEN/MAAL/LIDO 180 ML BTL SWISH SWAL SCH ×4 (10:56→20:06)
[2019-09-09] MEDS: Magic MouthWash1-BEN/MAAL/LIDO 180 ML BTL SWISH SWAL SCH ×4 (08:45→20:58)
[2019-09-10] MEDS: Magic MouthWash1-BEN/MAAL/LIDO 180 ML BTL SWISH SWAL SCH ×4 (09:09→20:39)
[2019-09-11] MEDS: Magic MouthWash1-BEN/MAAL/LIDO 180 ML BTL SWISH SWAL SCH ×5 (07:58→22:06)
[2019-09-11 22:27] LABS: Urine Appearance Turbid; Urine Bilirubin Negative (Negative); Urine Blood 1+ (Negative); Urine Color Yellow; Urine Glucose Negative (Negative); Urine Ketones Negative (Negative); Urine Nitrite Negative (Negative); Urine Protein Negative (Negative); Urine Specific Gravity 1.009 (1.010-1.030); Urine Urobilinogen Negative (Negative)
[2019-09-11 22:31] LABS: Urine Bacteria 1+ (Absent); Urine Red Blood Cell 3+(>10/hpf) (Absent); Urine Squamous Epithelial Cell Present (Absent); Urine White Blood Cell 3+(>20/hpf) (Absent)
[2019-09-12] MEDS: Magic MouthWash1-BEN/MAAL/LIDO 180 ML BTL SWISH SWAL SCH ×4 (09:46→21:00)
[2019-09-13] MEDS: Senna TAB 8.6 mg TAB PO PRN (08:35)
[2019-09-13] MEDS: Magic MouthWash1-BEN/MAAL/LIDO 180 ML BTL SWISH SWAL SCH ×4 (08:38→21:09)
[2019-09-14] MEDS: Magic MouthWash1-BEN/MAAL/LIDO 180 ML BTL SWISH SWAL SCH ×4 (10:26→21:38)
[2019-09-14] MEDS: Polyethylene Glycol 3350 17 GM PACKET PO PRN (21:54)
[2019-09-15] MEDS: Magic MouthWash1-BEN/MAAL/LIDO 180 ML BTL SWISH SWAL SCH ×3 (10:09→16:01)
[2019-09-15 11:01] LABS: ABS Basophils 0.1 10^3/ul (0-0.2); ABS Eosinophils 0.1 10^3/ul (0-0.6); ABS Lymphocytes 0.9 10^3/ul (1.0-4.8); ABS Monocytes 0.5 10^3/ul (0-0.8); Eosinophil % 0.8 %; Hematocrit 32 % (42-52); Hemoglobin 10.5 g/dL (14.0-18.0); Mean Corpuscular HGB Conc 33 g/dL (31-36); Mean Corpuscular Hemoglobin 33 pg (27-31); Mean Corpuscular Volume 98 fL (80-94); Mean Platelet Volume 8.4 fL (7.4-10.4); Platelet Count 131 10^3/uL (150-450); Red Blood Count 3.23 10^6 /uL (4.18-5.48); Red Cell Distribution Width 19 % (10-15); White Blood Count 6.7 10^3/uL (3.5-10.8)
[2019-09-15 11:12] LABS: BUN/Creatinine Ratio 18.3 (8-20); Calcium 8.9 mg/dL (8.6-10.3); EGFR African American 41.7 (>60); EGFR Non-African American 34.5 (>60); Potassium 3.7 mmol/L (3.5-5.0)
[2019-09-16] MEDS: Polyethylene Glycol 3350 17 GM PACKET PO PRN (08:57)
[2019-09-16] MEDS: Dextran 70/Hypromellose Tears Eye Drops 15 ml BTL (for Artificials Tears) RIGHT EYE PRN (21:03)
[2019-09-17] MEDS: Dextran 70/Hypromellose Tears Eye Drops 15 ml BTL (for Artificials Tears) RIGHT EYE PRN ×2 (05:18→09:04)
[2019-09-17 06:37] LABS: BUN/Creatinine Ratio 19.3 (8-20); Calcium 8.8 mg/dL (8.6-10.3); EGFR African American 44.4 (>60); EGFR Non-African American 36.7 (>60); Potassium 3.8 mmol/L (3.5-5.0)
[2019-09-18 07:46] VITALS: BP 138/93
[2019-09-18] MEDS: Polyethylene Glycol 3350 17 GM PACKET PO PRN (08:00)
== END 2019-09-18 13:28 | DRG 292 ==
LOC: MED 17:30 → UNDOADMIN 17:30 → MED 17:44 → MEDTELE 09-02 18:10
PROVIDERS: ADMIT Internal Medicine; ATTEND Internal Medicine